=== PATIENT | male | born 1965 | race Caucasian/White ===

== ENCOUNTER 2023-03-11 15:55 | Outpatient (RCR) | payer OTHER, SELFPAY | END 2023-03-11 23:59 | disposition home or self-care (01) | LOC: RPT 15:55 | PROVIDERS: ATTENDING PHYSICIAN Physician Assistant; FAMILY PHYSICIAN Family Medicine | DX: Z47.89 Encounter for other orthopedic aftercare (principal); Z98.890 Other specified postprocedural states; M25.511 Pain in right shoulder; Z73.6 Limitation of activities due to disability | CPT/HCPCS: 97010; 97110; 97140 ==

== ENCOUNTER 2023-04-10 15:58 | Outpatient (RCR) | payer OTHER, SELFPAY | END 2023-04-10 23:59 | disposition home or self-care (01) | LOC: RPT 15:58 | PROVIDERS: ATTENDING PHYSICIAN Physician Assistant; FAMILY PHYSICIAN Family Medicine | DX: M25.511 Pain in right shoulder (principal); Z98.890 Other specified postprocedural states; Z73.6 Limitation of activities due to disability | CPT/HCPCS: 97010; 97110; 97140 ==

== ENCOUNTER → 2023-06-27 16:35 | Outpatient (REF) | payer OTHER, SELFPAY | LOC: RAD 16:35 | PROVIDERS: ATTENDING PHYSICIAN Family Medicine | DX: M25.512 Pain in left shoulder (principal); G89.29 Other chronic pain | CPT/HCPCS: 73030 ==

== ENCOUNTER → 2023-07-11 10:42 | Outpatient (REF) | payer OTHER, SELFPAY | LOC: RCS 10:42 | PROVIDERS: ATTENDING PHYSICIAN Internal Medicine Cardiovascular Disease; FAMILY PHYSICIAN Family Medicine | DX: R07.89 Other chest pain (principal) | CPT/HCPCS: 93017 ==

== ENCOUNTER → 2023-08-06 19:48 | Outpatient (REF) | payer OTHER, SELFPAY | LOC: MRI 3T 19:48 | PROVIDERS: ATTENDING PHYSICIAN Orthopaedic Surgery Hand Surgery; FAMILY PHYSICIAN Family Medicine | DX: M25.512 Pain in left shoulder (principal) | CPT/HCPCS: 73221 ==

== ENCOUNTER 2023-08-27 06:17 | Day surgery (SDC) | payer OTHER, SELFPAY ==
[2023-08-27] VITALS (9 sets, daily range): BP systolic 100–128; BP diastolic 7–84; BMI 26.1
[2023-08-27] MEDS: CELEBREX 200 MG PO (09:10)
[2023-08-27] MEDS: TYLENOL 1000 MG PO (09:10)
[2023-08-27] MEDS: NORMOSOL-R 1000 IV (09:10)
[2023-08-27] MEDS: DILAUDID 0.5 MG IV (13:38)
[2023-08-27] MEDS: COMPAZINE 5 MG IV (13:49)
[2023-08-27] MEDS: DILAUDID 0.25 MG IV (14:08)
== END 2023-08-27 15:28 | disposition home or self-care (01) ==
LOC: SDS 06:17
PROVIDERS: ATTENDING PHYSICIAN Orthopaedic Surgery Hand Surgery
DX: S43.432A Superior glenoid labrum lesion of left shoulder, initial encounter (principal); X58.XXXA Exposure to other specified factors, initial encounter; M75.42 Impingement syndrome of left shoulder; M75.112 Incomplete rotator cuff tear or rupture of left shoulder, not specified as traumatic
CPT/HCPCS: 29827; 29828; 29826; C1713; C1763; C1776

== ENCOUNTER 2023-10-09 16:46 | Outpatient (RCR) | payer OTHER, SELFPAY | END 2023-10-09 23:59 | disposition home or self-care (01) | LOC: RPT 16:46 | PROVIDERS: ATTENDING PHYSICIAN Physician Assistant; FAMILY PHYSICIAN Family Medicine | DX: M25.512 Pain in left shoulder (principal); Z73.6 Limitation of activities due to disability | CPT/HCPCS: 97010; 97110; 97140; 97163 ==

== ENCOUNTER 2023-11-06 16:09 | Outpatient (RCR) | payer OTHER, SELFPAY | END 2023-11-06 23:59 | disposition home or self-care (01) | LOC: RPT 16:09 | PROVIDERS: ATTENDING PHYSICIAN Physician Assistant; FAMILY PHYSICIAN Family Medicine | DX: Z73.6 Limitation of activities due to disability (principal); Z98.890 Other specified postprocedural states; M25.512 Pain in left shoulder; M62.81 Muscle weakness (generalized) | CPT/HCPCS: 97010; 97110; 97140 ==

== ENCOUNTER 2023-11-11 16:52 | Outpatient (RCR) | payer OTHER, SELFPAY | END 2023-11-11 18:29 | disposition home or self-care (01) | LOC: RPT 16:52 | PROVIDERS: ATTENDING PHYSICIAN Physician Assistant; FAMILY PHYSICIAN Family Medicine | DX: M25.512 Pain in left shoulder (principal); Z98.890 Other specified postprocedural states; Z73.6 Limitation of activities due to disability | CPT/HCPCS: 97010; 97110; 97140 ==

== ENCOUNTER 2024-04-08 16:35 | Emergency (ER) | payer BC, SELFPAY ==
[2024-04-08 17:14] VITALS: BP 120/75
[2024-04-08 17:39] LABS: % Basophils 0.5 % (0-2); % Eosinophils 0.9 % (0-6); % Immature Granulocytes 0.5 % (0-0.5); % Lymphocytes 24.4 % (20.5-51.1); % Neutrophils 62.7 % (42.2-75.2); Absolute Eosinophils 0.1 10^3/uL (0-0.7); Absolute Lymphocytes 1.6 10^3/uL (1.2-3.4); Absolute Monocytes 0.7 10^3/uL (0.1-0.6); Absolute Neutrophils 4.2 10^3/uL (1.4-6.5); Hematocrit 42.9 % (39.0-52.0); Hemoglobin 14.7 g/dL (13.0-18.0); Mean Corp Hgb Conc. 34.3 g/dL (33.0-37.0); Mean Corpuscular Hgb 30.4 pg (27.0-31.0); Mean Corpuscular Volume 88.8 fL (80.0-94.0); Mean Platelet Volume 11.2 fL (7.4-10.4); Nucleated Red Blood Cells % 0 % (-); Platelet Count 221 10^3/uL (130-400); Red Blood Cell Count 4.83 10^6/uL (4.70-6.10); Red Cell Dist. Width 11.6 % (11.5-14.5); White Blood Cell Count 6.7 10^3/uL (4.8-10.8)
[2024-04-08 18:02] LABS: ALT (SGPT) 40 U/L (0-50); AST (SGOT) 30 U/L (17-59); Albumin 4.4 g/dl (3.5-5.0); Alkaline Phosphatase 64 U/L (38-126); Blood Urea Nitrogen 18 mg/dl (9-20); Calcium 9.7 mg/dl (8.4-10.2); Carbon Dioxide 28 mmol/L (22-30); Chloride 102 mmol/L (98-107); Glucose 125 mg/dl (70-99); Potassium 3.9 mmol/L (3.5-5.1); Sodium 139 mmol/L (135-145); Total Bilirubin 0.5 mg/dl (0.2-1.3); Total Protein 7.2 g/dl (6.3-8.2); eGFR > 60.00
[2024-04-08 18:06] LABS: Troponin I < 0.012 ng/ml
[2024-04-08 19:55] VITALS: BP 126/83
--- NOTE | 2024-04-08 20:33 | ED.GENMED ---
History of Present Illness
General
Chief Complaint: Fainting/Passed Out
Source: patient
Exam Limitations: none
Time Seen by Provider: 04/08/24 20:21
Nursing documentation reviewed up to this point in time: agreed with
History of Present Illness
History of Present Illness:
This is a 58-year-old male with past medical history of hypertension, who presents emergency department today with concerns of a syncopal episode. Patient states that he was seeing his orthopedist Dr. Delong in the office today as a follow-up
appointment for shoulder pain he has been having. He was told he had a rotator cuff tear. Patient states that after he was told this dyspnea is upset him and he started to feel warm, dizzy, and lightheaded. He also started to have some blurry
vision. Patient states that at this time he was sitting on exam table in room with Dr. Delong and his staff. Patient states that he lost consciousness and when he woke up, he was on the clinic table. Patient states that he had some mild
dizziness after this episode for some time but currently he feels well and has no dizziness, no lightheadedness. He states that he did not fall and hit his head. He denies any headache. He denies any neck pain. He denies any chest pain or
shortness of breath. He has no personal history of cardiac disease. He has no family history of cardiac disease or sudden cardiac . Patient does have a history of syncopal episodes in the past.
Review of Systems
Review of Systems
All Other Systems: ROS reviewed and negative except as documented in HPI and ROS
Phy Exam
Physical Exam
Physical Exam:
General: Patient is well appearing and in no acute distress; non-toxic
Skin: Warm and dry, no rashes or lesions
Head: Normocephalic, atraumatic
Eyes: Sclera non-icteric. EOMs intact.
Cardiac: Regular rate and rhythm, no murmurs
Peripheral Vascular: No lower extremity swelling or edema
Pulm: Normal respiratory effort, no wheezes, rales, rhonchi
Abdomen: No abdominal tenderness to palpation
Neuro: CN II-XII intact, no focal neurologic deficits.
Psychiatric: Appropriate mood and affect.
Course
Orders/Labs/Results
Orders:
Orders
04/08/24 16:37
Electrocardiogram (*1) Urgent
Reason for Study: Syncope
EKG- Treatment ONCE
04/08/24 17:25
Complete Blood Count/With Diff Urgent
Comprehensive Metabolic Panel Urgent
Troponin I Urgent
Abnormal Lab Results
04/08/24
17:25
MPV 11.2 H fL
(7.4-10.4)
Absolute Monos (auto) 0.7 H 10^3/uL
(0.1-0.6)
Monocytes % 11.0 H %
(1.7-9.3)
Glucose 125 H mg/dl
(70-99)
04/08/24 17:25
04/08/24 17:25
Vital Signs
Initial and Last Documented VS:
Initial Vital Signs
Temp Pulse Resp BP Pulse Ox
97.8 F 87 16 120/75 99
04/08/24 17:14 04/08/24 17:14 04/08/24 17:14 04/08/24 17:14 04/08/24 17:14
Last Documented Vital Signs
Temp Pulse Resp BP Pulse Ox
97.8 F 87 16 129/85 99
04/08/24 17:14 04/08/24 21:15 04/08/24 21:15 04/08/24 21:15 04/08/24 21:15
MDM/Problems Addressed
Differential Diagnosis Includes:
Differentials include vasovagal syncope, orthostatic hypotension, hyponatremia, symptomatic anemia, arrhythmia
MDM/Problems Addressed:
58-year-old male presents emergency department today with concerns of a syncopal episode. Patient states that he had prodromal symptoms associated with this and was upset about the news about hearing his rotator cuff had been torn. Patient states
that he felt a bit dizzy after the episode but since his symptoms have resolved without intervention and he states that he feels well. On exam he is well-appearing in no acute distress his heart is regular rate and rhythm with no murmurs he is EKG
demonstrates normal sinus rhythm with no arrhythmia. CBC and CMP unremarkable. History and physical most consistent with vasovagal syncope. Patient stable for discharge. Return precautions discussed.
*Pulse Oximetry
Patient hypoxic: no
*EKG
Interpreted by ED Provider?: Yes
EKG Intrepretation Date: 04/08/24
Heart Rate: 86
Rate: normal
Rhythm: sinus
[place]: normal axis
*Critical Care Note
Total Time (30-74mins, 75-104mins- exclusive of procedures): Not Applicable
Data Reviewed
Review of Other/Old Records Reveals: Records (No previous ER physician documentation to review no hospital discharge summaries to review)
Source: patient and records
ED Attending Note
-
Portions of this chart may have been created with voice recognition software.� Occasional wrong word or��sound alike� substitutions may have occurred due to the inherent limitations of voice recognition software.
Discharge Plan
Departure
Patient Disposition: Home (Routine Discharge)
Date of Disposition: 04/08/24
Time of Disposition: 21:01
Patient with high blood pressure during this ER visit?: Yes
Condition: Good
Discharge Problem:
Vasovagal syncope
Instructions: Syncope (Fainting) (DC)
Prescriptions:
No Action
fluticasone propionate [Flonase] 50 mcg/actuation Ione,Suspension
1 spray INTRANASAL DAILY
loratadine [Claritin] 10 mg Tablet
10 mg PO DAILY
Men's Multivitamin 400-20-300 mcg Tablet
1 tab PO DAILY
Fiber Choice (inulin) 1.5 gram Tablet,Chewable
1.5 g PO DAILY
Referrals:
Damaso Bryan, DO [Family Provider] -
Activity Restrictions/Additional Instructions:
Your EKG today shows normal sinus rhythm.
PLEASE RETURN TO EMERGENCY DEPARTMENT TO DEVELOP CHEST PAIN, FURTHER FAINTING SPELLS, PALPITATIONS, SHORTNESS OF BREATH, FEVERS OR CHILLS, WEAKNESS IN ONE-SIDED BODY VERSUS OTHER, DIFFICULTY AMBULATING, HEADACHES, DIZZINESS, OR ANY OTHER SIGNS OR
SYMPTOMS WORRISOME TO YOU.
Please follow-up with your primary care provider.
Interventions
Interventions:
*Risk Screen - Suicide Last Done: 04/08/24 17:14
*General Assessment Last Done: 04/08/24 19:48
*Neglect/Abuse Screening Last Done: 04/08/24 17:14
ED- Fall Risk Assessment Last Done: 04/08/24 19:48
*ED COVID-19 Vaccine History Last Done: 04/08/24 19:48
*Nursing Disposition Last Done: 04/08/24 21:15
ED- Cardiac Assessment Last Done: 04/08/24 19:48
ED- Neurological Assessment Last Done: 04/08/24 19:48
Discharge Date and Time
Discharge Date/Time: 04/08/24 21:15
Print Language: PALAUAN
[2024-04-08 21:15] VITALS: BP 129/85
== END 2024-04-08 21:15 | disposition home or self-care (01) ==
LOC: EMR 16:35
PROVIDERS: Emergency Medicine; EMERGENCY PHYSICIAN Emergency Medicine; FAMILY PHYSICIAN Family Medicine
DX: R55 Syncope and collapse (principal); I10 Essential (primary) hypertension
CPT/HCPCS: 99283; 80053; 84484; 85025; 93005

== ENCOUNTER 2024-06-09 08:41 | Outpatient (RCR) | payer BC, SELFPAY | END 2024-06-09 23:59 | disposition home or self-care (01) | LOC: RPT 08:41 | PROVIDERS: ATTENDING PHYSICIAN Physician Assistant Surgical; FAMILY PHYSICIAN Family Medicine | DX: Z47.89 Encounter for other orthopedic aftercare (principal); M25.512 Pain in left shoulder; Z73.6 Limitation of activities due to disability | CPT/HCPCS: 97110; 97140; 97162 ==

== ENCOUNTER 2024-07-07 17:48 | Outpatient (RCR) | payer BC, SELFPAY | END 2024-07-07 23:59 | disposition home or self-care (01) | LOC: RPT 17:48 | PROVIDERS: ATTENDING PHYSICIAN Physician Assistant Surgical; FAMILY PHYSICIAN Family Medicine | DX: M25.512 Pain in left shoulder (principal); Z47.89 Encounter for other orthopedic aftercare; Z73.6 Limitation of activities due to disability | CPT/HCPCS: 97010; 97110; 97140 ==

== ENCOUNTER 2024-08-04 15:52 | Outpatient (RCR) | payer BC, SELFPAY | END 2024-08-04 23:59 | disposition home or self-care (01) | LOC: RPT 15:52 | PROVIDERS: ATTENDING PHYSICIAN Physician Assistant Surgical; FAMILY PHYSICIAN Family Medicine | DX: Z47.89 Encounter for other orthopedic aftercare (principal); M25.512 Pain in left shoulder; Z73.6 Limitation of activities due to disability | CPT/HCPCS: 97010; 97110; 97140 ==